=== PATIENT | female | born 1965 | race Caucasian/White ===

== ENCOUNTER 2020-02-10 23:24 | Emergency (ER) | payer OTHER, MEDICAID ==
[~2020-02-10] VITALS: Ht 154.9 cm; Wt 86.0 kg
[2020-02-11] MEDS ORDERED: DIPHENHYDRAMINE 50MG/ML VIAL IV ONE
[2020-02-11] MEDS ORDERED: METOCLOPRAMIDE HCL 10MG/2ML VIAL IV ONE
[2020-02-11] MEDS ORDERED: CLONIDINE 0.3MG TABLET PO ONE (00:45)
[2020-02-11 01:00] LABS: CHLORIDE 101 mEq/L (98-107)
[2020-02-11 01:03] LABS: BASOPHILS % 0.4 % (0.0-2.0); EOSINOPHILS % 4.2 % (0.0-5.0); HEMATOCRIT. 36.3 % (36.0-48.0); HEMOGLOBIN. 12.1 g/dL (12.0-16.0); LYMPHOCYTES % 38.1 % (20.0-50.0); MEAN CORPUSCULAR HEMOGLOBIN 31.2 pg (28.0-32.0); MEAN CORPUSCULAR VOLUME 93.1 fL (81.0-99.0); MEAN PLATELET VOLUME 10.8 fl (7.4-10.4); MONOCYTES % 6.7 % (2.0-8.0); NEUTROPHILS % 50.6 % (40.0-76.0); PLATELET 167 x1000/uL (130-400); RED CELL DISTRIBUTION WIDTH 12.5 % (11.6-14.6)
[2020-02-11] MEDS ORDERED: INSULIN LISPRO 100 UNITS/ML SUBCUT ONE (01:30)
[2020-02-11] MEDS ORDERED: SODIUM CHLORIDE 0.9% 1,000 ML IV ONE (01:30)
[2020-02-11 03:26] VITALS: BP 117/67
== END 2020-02-11 04:03 | disposition home or self-care (01) ==
LOC: ER 23:24
DX: I11.9 Hypertensive heart disease without heart failure (principal); R51.9 Headache, unspecified; E11.9 Type 2 diabetes mellitus without complications; I25.10 Atherosclerotic heart disease of native coronary artery without angina pectoris; N28.9 Disorder of kidney and ureter, unspecified; Z98.890 Other specified postprocedural states
CPT/HCPCS: 36415; 70450; 80053; 82962; 84484; 85025; 93005; 96361; 96374; 96375; 99285; J1200; J1815; J2765; J7030